=== PATIENT | female | born 1945 | race Caucasian/White ===

== ENCOUNTER 2020-12-04 10:38 | Emergency (ER) | payer OTHER ==
[~2020-12-04 10:38] MED LIST: NORCO 5-325 TA1 EACH PO; ZYRTEC10 MG PO
== END 2020-12-04 11:38 | disposition other institution (70) ==
LOC: FER 10:38
DX: I63.311 Cerebral infarction due to thrombosis of right middle cerebral artery (principal); G81.94 Hemiplegia, unspecified affecting left nondominant side; R29.810 Facial weakness; E07.9 Disorder of thyroid, unspecified; R29.706 NIHSS score 6; Z79.899 Other long term (current) drug therapy; Z87.891 Personal history of nicotine dependence
CPT/HCPCS: 70450